=== PATIENT | male | born 1990 | race Caucasian/White ===

== ENCOUNTER 2022-08-09 08:09 | Emergency (ER) | payer OTHER ==
[~2022-08-09] VITALS: Ht 180.3 cm; Wt 99.0 kg
[2022-08-09 08:12] VITALS: BP 142/78
[2022-08-09] MEDS ORDERED: KETOROLAC TROMETH 30 MG/ML 1ML VIAL IV ONE (08:30)
[2022-08-09] MEDS ORDERED: IBUP800T27 PO (09:48)
== END 2022-08-09 10:23 | disposition home or self-care (01) ==
LOC: EDBD 08:09 → ER 08:09
DX: S92.301A Fracture of unspecified metatarsal bone(s), right foot, initial encounter for closed fracture (principal); S93.121A Dislocation of metatarsophalangeal joint of right great toe, initial encounter; S93.401A Sprain of unspecified ligament of right ankle, initial encounter; V43.52XA Car driver injured in collision with other type car in traffic accident, initial encounter; Y93.89 Activity, other specified; Y92.410 Unspecified street and highway as the place of occurrence of the external cause; Y99.8 Other external cause status
CPT/HCPCS: 28630; 73610; 73620; 73630; 96374; 99284; J1885